=== PATIENT | male | born 1945 | race Caucasian/White ===

== ENCOUNTER 2018-09-08 14:39 | Inpatient (IN) | payer MEDICARE ==
[2018-09-08] MEDS ORDERED: traMADol TAB* 50 MG PO ONE (15:02)
--- NOTE | 2018-09-08 15:42 | RAD ---
INDICATION: Fall COMPARISON: None. TECHNIQUE: Contiguous axial sections of the brain were obtained from the skull base to the vertex without contrast. FINDINGS: The ventricles, cisterns and sulci exhibit a very mild degree of involutional change. The clay-white matter differentiation is adequately maintained and there is no sulcal effacement. No significant focal abnormality or mass effect is present. There is calcified atherosclerosis at the bilateral petrous carotid arteries and the bilateral vertebral arteries as they pass through the foramen magnum. There is no evidence for intracranial hemorrhage. No significant focal osseous abnormality is present. The visualized portion of the paranasal sinuses appear clear. The mastoid air cells are well aerated bilaterally. IMPRESSION: Age-appropriate chronic findings described in the body the report without CT evidence of traumatic intracranial injury.
--- NOTE | 2018-09-08 15:49 | RAD ---
INDICATION: Right rib pain after falling out of the latter COMPARISON: None TECHNIQUE: 3 views of the right hip were obtained. FINDINGS: The visualized bones of the right hip are well-corticated and properly aligned. The there is cortical discontinuity along the superior lateral margin of the right greater trochanter. There is a very faint lucent line seen along the intertrochanteric line. Remaining visualized bones are intact and appropriately aligned. IMPRESSION: There is either a nondisplaced intertrochanteric fracture or avulsion fracture of the greater trochanter.
--- NOTE | 2018-09-08 15:50 | RAD ---
INDICATION: Right wrist pain after a fall from a ladder COMPARISON: None. TECHNIQUE: 3 views right wrist. REPORT: There is a comminuted impacted fracture of the distal right radius. There is a small amount of dorsal angulation seen in the lateral view. Many visualized bones are intact and appropriately aligned. IMPRESSION: Comminuted, impacted fracture of the distal right radius.
--- NOTE | 2018-09-08 16:04 | ED ---
Progress - Progress Note Progress Note: I supervised the care of the physician distribution center assistant and I performed history and physical on the patient. History: Fell off a ladder injuring right wrist, right hip, nonambulatory. Physical exam: Deformity at the right wrist, neurovascular intact. Discomfort at the right greater trochanter. Pain with axial loading of the right hip. Abrasion to the right brow. Plan: X-ray of the right hip indicates possible nondisplaced intertrochanteric fracture. This will be further characterized by CT. Reduction and splinting of the wrist. I assisted with reduction and splinting of the right wrist. Course/Dx - Diagnoses Provider Diagnoses: Distal radius fracture, right, Trochanteric fracture of right femur Discharge - Sign-Out/Discharge Documenting (check all that apply): Patient Departure - Discharge Plan Condition: Stable Disposition: ADMITTED TO [facility] Referrals: Evin Arevalo MD [Primary Care Provider] - - Billing Disposition and Condition Condition: STABLE Disposition: Admitted to [facility] - Attestation Statements Document Initiated by Scribe: No
--- NOTE | 2018-09-08 16:12 | ED ---
Adult Trauma - HPI Summary HPI Summary: Patient is a 73-year-old male presenting to the ED after a fall from a 3-1/2 foot stepladder. He endorses pain to the right hip as well as the right wrist. Small abrasion to the right eyebrow, however denies any LOC or hitting his head otherwise. He states he did not attempt to walk immediately following the accident. Endorses a 2/10 pain without palpation and an 8/10 with palpation. He states he is otherwise healthy, however has hypertension at baseline. He is not on blood thinners. - History of Current Complaint Chief Complaint: EDTraumaMultiple Stated Complaint: FALL RIGHT HAND AND RIGHT HIP Time Seen by Provider: 09/08/18 14:45 Hx Obtained From: Patient Mechanism of Injury: Direct Blow Ambulatory at the Scene: No Loss of Consciousness: no loss of consciousness Onset/Duration: Started Minutes Ago Onset of Pain: Minutes Onset Severity: Moderate Current Severity: Moderate Pain Intensity: 8 Aggravating Factor(s): Nothing Alleviating Factor(s): Nothing Associated Signs & Symptoms: Positive: Negative Related History: Similar Episode - Allergy/Home Medications Allergies/Adverse Reactions: Allergies Allergy/AdvReac Type Severity Reaction Status Date / Time No Known Drug Allergies Allergy Unknown Verified 09/08/18 15:07 Reaction Details PMH/Surg Hx/FS Hx/Imm Hx Previously Healthy: Yes - Immunization History Hx Pertussis Vaccination: No Immunizations Up to Date: Yes Infectious Disease History: No Infectious Disease History: Denies: Traveled Outside the [place] in Last 30 Days - Social History Occupation: Unemployed, Retired Lives: With Family Alcohol Use: None Hx Substance Use: No Substance Use Type: Reports: None Hx Tobacco Use: No Smoking Status (MU): Never Smoked Tobacco Review of Systems Constitutional: Negative Negative: Fever, Chills, Fatigue, Skin Diaphoresis Negative: Palpitations, Chest Pain Negative: Shortness Of Breath, Cough Genitourinary: Negative Positive: no symptoms reported, see HPI Positive: Arthralgia, Myalgia Skin: Negative Neurological: Negative All Other Systems Reviewed And Are Negative: Yes Physical Exam Triage Information Reviewed: Yes Vital Signs On Initial Exam: Initial Vitals Temp Pulse Resp BP Pulse Ox 97.9 F 75 20 171/94 95 09/08/18 14:58 09/08/18 14:58 09/08/18 14:58 09/08/18 14:58 09/08/18 14:58 Vital Signs Reviewed: Yes Appearance: Positive: Well-Appearing, Well-Nourished Skin: Positive: Warm, Skin Color Reflects Adequate Perfusion Head/Face: Positive: Normal Head/Face Inspection Eyes: Positive: EOMI, MARIA TERESA, Conjunctiva Clear Neck: Positive: Supple, Nontender Respiratory/Lung Sounds: Positive: Breath Sounds Present Cardiovascular: Positive: Pulses are Symmetrical in both Upper and Lower Extremities Musculoskeletal: Positive: Pain @ - right lateral hip and R wrist Neurological: Positive: Speech Normal Psychiatric: Positive: Normal, Affect/Mood Appropriate Diagnostics - Vital Signs Vital Signs Temp Pulse Resp BP Pulse Ox 09/08/18 14:58 97.9 F 75 20 171/94 95 - Laboratory Result Diagrams: 09/08/18 20:45 09/08/18 20:45 Lab Statement: Any lab studies that have been ordered have been reviewed, and results considered in the medical decision making process. Adult Trauma Course/Dx - Course Course Of Treatment: During the course of treatment, the patient is evaluated for trauma. Injuries occurred after falling from a 3 and half foot ladder. He endorses pain to the right hip, right wrist. He denies pain otherwise. He denies hitting his head or having loss of consciousness. However there is a small abrasion just above the right eye. He denies any blood thinners. He has a history of hypertension and takes medications daily. X-ray of the wrist shows a comminuted, impacted fracture of the right distal radius. CT of the pelvis obtained which shows a minimally displaced avulsion fracture involving the superior and posterior right greater trochanter. Fracture line does not extend to or involve the lesser trochanter. Discussed case with Dr. Rosa at 5: 20 PM. Patient continues to not be able to ambulate. Discussed case with Dr. Rose, hospitalist who agrees to admit. Brain CT obtained which is normal. - Diagnoses Differential Diagnosis/HQI/PQRI: Positive: Fracture Provider Diagnoses: Distal radius fracture, right, Trochanteric fracture of right femur Discharge - Sign-Out/Discharge Documenting (check all that apply): Patient Departure - Discharge Plan Condition: Stable Disposition: ADMITTED TO [facility] - Billing Disposition and Condition Condition: STABLE Disposition: Admitted to [facility] Addendum entered and electronically signed by Demetria Gonzalez PA 09/08/18 17:40 : ED Addendum Addendum: Right wrist reduced and splinted s/p finger trap placement. s/p reduction xrays show adequate reduction.
--- NOTE | 2018-09-08 16:59 | RAD ---
CLINICAL HISTORY: Right hip pain after a fall from a ladder. COMPARISON: Same day hip radiograph TECHNIQUE: Axial CT images of the pelvis were obtained without intravenous contrast. Reformats in the sagittal and coronal planes were created and reviewed. FINDINGS: There is an avulsion fracture involving the superior and posterior portion of the right greater trochanter that extends inferiorly along the intertrochanteric line but does not reach the lesser trochanter. The remaining portions of the visualized right femur including the neck and proximal shaft are intact. The visualized portions of the right iliac bone are intact. Incidentally noted is mild calcified atherosclerosis of the right common femoral and superficial femoral arteries. IMPRESSION: Minimally displaced avulsion fracture involving the superior and posterior right greater trochanter. Fracture line does not extend to or involve the lesser trochanter.
--- NOTE | 2018-09-08 17:52 | RAD ---
INDICATION: Status post reduction of fractured distal right radius COMPARISON: Same day radiograph acquired at 1530 hours TECHNIQUE: 3 views right wrist at 1720 hours. REPORT: There is been interval placement of a splint that partially obscures the visualized bones of the AP and oblique views. Again seen is a comminuted fracture of the distal right radius. There is been a slight interval reduction in the degree of dorsal angulation at the fracture site. IMPRESSION: Slight interval reduction in the degree of dorsal angulation at the patient's comminuted distal right radius fracture.
[2018-09-08] MEDS ORDERED: Acetaminophen TAB* 325 MG PO PRN (20:05)
[2018-09-08 20:52] LABS: Hematocrit 42 % (42-52); Mean Corpuscular HGB Conc 33 g/dl (31-36); Mean Corpuscular Hemoglobin 30 pg (27-31); Mean Corpuscular Volume 90 fL (80-94); Mean Platelet Volume 9.7 fL (7.4-10.4); Platelet Count 166 10^3/ul (150-450); Red Blood Count 4.68 10^6/ul (4.00-5.40); Red Cell Distribution Width 15 % (10.5-15); White Blood Count 13.4 10^3/ul (3.5-10.8)
[2018-09-08 21:07] LABS: EGFR Non-African American 68.9 (>60)
[2018-09-08] MEDS: Heparin VIAL(*) 5000 UNITS/ML VIAL (FIVE THOUSAND) SUBCUT SCH (22:16)
--- NOTE | 2018-09-08 23:06 | HP ---
CC: Dr. Rosa; Dr. Arevalo * HISTORY AND PHYSICAL: DATE OF ADMISSION: 09/08/18 PROVIDER: Kim Stover NP PRIMARY CARE PROVIDER: Dr. Arevalo. ATTENDING PHYSICIAN WHILE IN THE HOSPITAL: Dr. Funmi Baird * (dictated by Kim Stover NP). CHIEF COMPLAINT: 1. Fall. 2. Right hip avulsion fracture. 3. Right wrist distal radius fracture. HISTORY OF PRESENT ILLNESS: Mr. Arenas is a 73-year-old male with a past medical history significant for hypertension, hyperlipidemia, and depression who presented to the emergency room after a fall at home. The patient reports that he was cleaning his ring gutters when he side stepped on a ladder that was 3.5 feet off the ground, lost his balance and fell landing on the ground. The patient reports that he had immediately had right hip pain and right wrist pain after the fall. He states that he did not try to get up or walk on his hip after the fall. Prior to the fall, he denies any dizziness. He denies any loss of consciousness. He does report that he hit the right side of his head, specifically right forehead. The patient denies fever or chills. Denies any nausea, vomiting, or diarrhea. Denies any chest pain or shortness of breath. Denies any recent cough or congestion. Denies any gross hematuria or dysuria. Denies any other symptoms. The patient denies any neck pain or back pain, status post a fall. Given his right wrist fracture and avulsion fracture to his right hip, we were asked to see and evaluate him for admission. PAST MEDICAL HISTORY: Significant for: 1. Hypertension. 2. Hyperlipidemia. 3. Depression. PAST SURGICAL HISTORY: None. HOME MEDICATIONS: Include: 1. Prozac unknown dose. 2. Norvasc unknown dose. 3. Simvastatin unknown dose. 4. Aspirin 81 mg p.o. daily. ALLERGIES TO MEDICATIONS: No known drug allergies. FAMILY HISTORY: No reported history of coronary artery disease or diabetes. Mother with a history of lung cancer. SOCIAL HISTORY: Denies any tobacco, alcohol, or illicit drug use. He is retired. He is and lives with his . Surrogate decision maker in the event he is unable to make his own decisions is his , Miko, her phone number is . He is a full code. REVIEW OF SYSTEMS: There was no documented fever. There has been no significant weight change. There was no double vision. There was no dizziness. Denies any ear discharge or rhinorrhea. No sore throat. He denies any chest pain. Denies any orthopnea or nocturnal dyspnea. There was no abdominal pain. No nausea, vomiting, or diarrhea. No dysuria or urinary frequencies. There are no seizures. No loss of consciousness. No pruritus. He does complain of abrasion above his right eye and right wrist and right hip pain. A review of 14 systems was completed and all others were negative. PHYSICAL EXAMINATION GENERAL: At this time, Mr. Arenas is a 73-year-old male who appears alert and oriented, sitting on the stretcher in the emergency room. He does not appear to be in acute distress. VITAL SIGNS: Blood pressure was 157/69, heart rate 72, respirations 16, O2 saturation 96%, and temperature on admission was 97.9. HEENT: He does have an abrasion, swelling, and ecchymosis to the right periorbital area. Eyes: EOMs are intact. Sclerae anicteric and not pale. Pupils are equal and reactive to light. Oral mucosa is moist. There is no oropharyngeal erythema. NECK: Supple. No C-spine tenderness to palpation. LUNGS: Clear to auscultation bilaterally. No wheezes, rales, or rhonchi. CARDIAC: S1, S2. Regular rate and rhythm. No murmurs, rubs, or gallops. ABDOMEN: Soft, nontender. Bowel sounds are present x4. EXTREMITIES: Pulses are +2 bilaterally. He is able to move all 4 extremities. He does have limited range of motion to his right leg and his right wrist is currently splinted. CMSTs are intact to his right wrist and foot. NEUROLOGIC: He is awake, alert, and oriented x3. Speech is clear. There are no gross focal deficits. SKIN: He does have a abrasion above his right eye with ecchymosis and swelling. DIAGNOSTIC STUDIES AND LABORATORY DATA: CBC and BMP are currently pending. Head CT was with no acute process. Right wrist showed a right distal radius fracture. Right hip and pelvis CT showed right avulsion fracture to the greater trochanter, not extending into the lesser trochanter. ASSESSMENT AND PLAN: Mr. Arenas is a 73-year-old male with the past medical history significant for hypertension, hyperlipidemia, and depression who presented to the emergency room after a fall at home while cleaning his ring gutters today. He will be admitted under observation for: 1. Right distal radial fracture. The patient did have this reduced in the emergency room and a splint was applied to his right forearm and wrist. CMSTs are intact. He will be seen in consultation by Orthopedics tomorrow. He can have Tylenol as needed for pain, ice to the wrist for comfort. 2. Right avulsion fracture to the hip. I have consulted Dr. Rosa who recommends weightbearing as tolerated. He will need PT for training with platform walker. Again, he can have Tylenol as needed for pain or tramadol as needed for severe pain. 3. Hypertension. He should continue his Norvasc as previously prescribed. When we get an updated med list, I will place the orders in the computer. 4. Hyperlipidemia. He should continue simvastatin. Again, med rec needs to be performed, so orders can be placed in the computer. 5. Depression. He should continue on his Prozac as previously prescribed. Again, I will place these orders in the computer when the med rec is updated. 6. Fluids, electrolytes, and nutrition. He can have a heart-healthy caffeine okay diet. 7. DVT prophylaxis. I will place him on heparin subcu every 8 hours. 8. Code status. He is a full code. TIME SPENT: Time spent on this admission was approximately 60 minutes, greater than half that time was spent [id number] with the patient obtaining my history and physical. The other half the time was spent going over my plan of care and implementing my plan of care. I have discussed this with my attending, Dr. Funmi Baird, she is in agreement with my plan. KIM STOVER, JORGE [id number]/[facility] #: [id number] ANDREW
[2018-09-09] MEDS: Heparin VIAL(*) 5000 UNITS/ML VIAL (FIVE THOUSAND) SUBCUT SCH ×3 (05:44→21:58)
[2018-09-09] MEDS: traMADol TAB* 50 MG PO PRN ×2 (05:49→13:50)
--- NOTE | 2018-09-09 14:27 | PN ---
Subjective Date of Service: 09/09/18 Interval History: Pt seen and examined. Meds and labs reviewed. CC: N/A ROS: Denied REAVES/dizziness, F/C, N/V, CP, SOB, increased cough, sputum production , abd pain, diarrhea, constipation, dysuria, myalgias, arthralgias, throat pain , and new skin lesions. The rest of the 14 point ROS are unremarkable. PHYSICAL EXAM: GEN APPEARANCE: Awake, not in acute distress HEENT: NC/AT, PERRLA, moist oral mucosa, (-) throat erythema NECK: Soft, supple, (-) cervical LAD, (-)JVD HEART: S1S2 WNL, RRR, No MRG CHEST: CTA, BL, GAE, No W/R/R ABD: Soft, ND/NT, NABS 4x Q EXT: No C/C/splint applied to right forearm and wrist SKIN: Warm to touch PSYCH: No active psychosis, hallucinations, depression, SI/HI Objective Active Medications: Acetaminophen (Tylenol Tab*) 650 mg PO Q4H PRN PRN Reason: FEVER/PAIN Amlodipine Besylate (Norvasc Tab*) 5 mg PO DAILY [facility] Heparin Sodium (Porcine) (Heparin Vial(*)) 5,000 units SUBCUT Q8HR YESSI Last Admin: 09/09/18 13:50 Dose: 5,000 units Tramadol HCl (Ultram*) 50 mg PO Q8H PRN PRN Reason: PAIN Last Admin: 09/09/18 13:50 Dose: 50 mg Vital Signs - 8 hr 09/09/18 09/09/18 09/09/18 07:33 07:47 08:42 Temperature 98.4 F Pulse Rate 62 Respiratory 16 18 18 Rate Blood Pressure 152/78 (mmHg) O2 Sat by Pulse 98 Oximetry 09/09/18 09/09/18 11:41 13:50 Temperature 98.4 F Pulse Rate 62 Respiratory 16 18 Rate Blood Pressure 138/68 (mmHg) O2 Sat by Pulse 97 Oximetry Oxygen Devices in Use Now: None Result Diagrams: 09/08/18 20:45 09/08/18 20:45 Assess/Plan/Problems-Billing Assessment: - Patient Problems (1) Right radial fracture Current Visit: Yes Status: Acute Code(s): S52.91XA - UNSP FRACTURE OF RIGHT FOREARM, INIT FOR CLOS FX SNOMED Code(s): 45372887 Comment: -S/P splint placement -Continue PRN and Tramadol for pain control -Appreciate Ortho input; spoke with Patito for pt to F/U w/Dr. Rosa on Sunday and that no surgical procedure is planned (2) Avulsion fracture of right hip Current Visit: Yes Status: Acute Code(s): S72.001A - FRACTURE OF UNSP PART OF NECK OF RIGHT FEMUR, INIT SNOMED Code(s): 443367174 Comment: -As above -Will defer (3) HTN (hypertension) Current Visit: Yes Status: Acute Code(s): I10 - ESSENTIAL (PRIMARY) HYPERTENSION SNOMED Code(s): 09124407 Comment: -Unknown Norvasc dose---will place pt on 5 mg and will continue watchful waiting (4) DVT prophylaxis Current Visit: Yes Status: Acute Code(s): UAZ0373 - SNOMED Code(s): 928520411 Comment: -Continue Heparin [id number] Status and Disposition: -Appreciate PT eval and per PT will work with pt one more day to see if he will be able to be safely D/Cd home and will need platform walker on D/C -Possible D/C in AM
--- NOTE | 2018-09-09 15:09 | CONS ---
CONSULTATION REPORT: DATE OF CONSULT: 09/09/18 ATTENDING ORTHOPEDIC PROVIDER: Dr. Dona oRsa. CHIEF COMPLAINT: Fall with avulsion fracture of the right hip and right wrist distal radius fracture. HISTORY OF PRESENT ILLNESS: Mr. Arenas is a 73-year-old male with a past medical history of hypertension, hyperlipidemia, and depression, who presented to the emergency room after a fall off the ladder at home. The patient states that he was cleaning the gutters and fixing shingles, as he came down the ladder he stepped off the ladder too soon. He states that he was roughly 3 steps up the ladder and stepped off falling on to his right side. She had immediate right hip and right wrist pain. He is unsure if he had any loss of consciousness. He states that he did hit the right side of his head on the ground and he felt very dazed, unsure what exactly happened after the fall. He was found by his who brought him into the emergency room. He states that he did have complete recollection of the fall once he had gone to the emergency room. Prior to falling, he had no chest pain, shortness of breath, or dizziness. On consultation today, he states that his right wrist remains painful , worse with movement and the right hip is not painful aside from palpation or any movement. He has no numbness or tingling of his extremities. PAST MEDICAL HISTORY: Significant for hypertension, hyperlipidemia, depression. PAST SURGICAL HISTORY: None. HOME MEDICATIONS: Include: 1. Prozac. 2. Norvasc. 3. Simvastatin. 4. 81 mg of aspirin daily. SOCIAL HISTORY: No tobacco, alcohol, or drug use. The patient is retired. He lives with his . He is a community ambulator. REVIEW OF SYSTEMS: General: No fever, chills, or recent illness. Head: The patient reports he did hit the right side of his head. He has no change in vision. He has a mild headache. Cardiac: No history of heart attack , no chest pain, no irregular beats. Respiratory: No history of COPD or asthma. No difficulty breathing at this time. Abdomen: No nausea, vomiting, or diarrhea. : No dysuria. Musculoskeletal: Positive for right wrist pain and right hip pain. No pain of his extremities, otherwise. Neurologic: Sensation is intact to all extremities. No paresthesias. Skin: Bruising and small abrasion over the right eye, but otherwise none reported. PHYSICAL EXAM: Vital Signs: Temperature 98.4, pulse rate 62, respiratory rate 16, oxygen saturation 98, blood pressure 152/78. General: The patient is well appearing, in no acute distress. He is sitting comfortably in his hospital bed. HEENT: He has some ecchymosis and abrasion over the right zygomatic bone. Extraocular movements are intact. Pupils are equally round and reactive to light. Oral mucosa is moist. Neck: No C-spine tenderness. Lungs: Clear to auscultation bilaterally without wheezes, rales, or rhonchi. Cardiac: S1 and S2, regular rate and rhythm without any audible murmurs. Abdomen: Normoactive bowel sounds. Soft, nontender. No guarding, no rigidity. Extremities: Left upper extremity skin envelope intact. Able to flex and extend at the digits, wrist, elbow without any pain. Able to forward flex and abduct the shoulder without any pain. There is no tenderness to palpation over the clavicle or throughout the left upper extremity. Right upper extremity: The patient has a sugar-tong splint in place. The skin envelope is intact. He is nontender over the clavicle or over the exposed portions of the right upper extremity. He is able to wiggle his fingers. He has flexion and extension of the MTPs, DIPs, PIPs. Sensation is intact throughout all 5 digits. Capillary refill is less than 2 seconds. Forward flexion and abduction of his shoulder is intact without any pain. Bilateral lower extremities: Skin envelope is intact. There is no obvious deformity. In the left lower extremity, the patient is nontender to palpation. Right lower extremity: He is tender over the greater trochanter. Bilaterally he is able to flex and extend at the MTPs, ankles, knees, and at the hips. Negative logroll on the left. Pain with log roll on the right. Neuro: Sensation is intact to light touch throughout bilateral upper and lower extremities. Vascular: Radial pulse on the left is 2+, DP pulse on the bilateral lower extremities 2+. Capillary refill less than 2 seconds distally in bilateral upper and lower extremities. DIAGNOSTIC STUDIES/LAB DATA: White blood cell count 13.4, hemoglobin 14.0, hematocrit 42, platelet count 166. Sodium 137, potassium 4.0. -Brain CT, impression: No evidence of traumatic intracranial injury. -Hip and pelvis x-ray, minimally displaced avulsion fracture involving superior and posterior right greater trochanter, fracture line does not extend to or involve the lesser trochanter -Wrist x-ray interpretation per Radiology, right wrist with a comminuted impacted fracture of the right distal radius. ASSESSMENT: 1. Right hip greater trochanteric avulsion fracture. 2. Right distal radius fracture. PLAN: The patient will be weightbearing as tolerated on the right lower extremity. On the right upper extremity, he will be nonweightbearing of the wrist. No pushing, pulling, or lifting with the right hand, but he is able to wiggle the fingers as tolerated. He should elevate his right upper extremity. He should ice both the right hip and the right wrist. He will participate with physical therapy. I recommend use of a platform walker. He can follow up with Dr. Rosa in 1 week in our clinic on 09/16/18. Please call our office at [phone] for an appointment. ROMAN CABALLERO [id number]/[facility] #: [id number] ANDREW
[2018-09-09] MEDS: amLODIPine TAB* 5 MG PO SCH (15:20)
[2018-09-10 03:48] LABS: Urine Appearance Clear; Urine Blood 1+ (Negative); Urine Color Straw; Urine Ketones Negative (Negative); Urine Protein Negative (Negative); Urine Red Blood Cell Trace(0-2/hpf) (Absent); Urine Specific Gravity 1.004 (1.010-1.030); Urine Urobilinogen Negative (Negative); Urine White Blood Cell Absent (Absent)
[2018-09-10] MEDS: Heparin VIAL(*) 5000 UNITS/ML VIAL (FIVE THOUSAND) SUBCUT SCH ×2 (05:24→15:59)
[2018-09-10] MEDS: traMADol TAB* 50 MG PO PRN ×2 (05:24→15:59)
[2018-09-10 05:29] LABS: ABS Basophils 0 10^3/ul (0-0.2); ABS Eosinophils 0.1 10^3/ul (0-0.6); ABS Lymphocytes 1.6 10^3/ul (1.0-4.8); ABS Monocytes 1.1 10^3/ul (0-0.8); ABS Neutrophils 5.3 10^3/ul (1.5-7.7); ABS Nucleated RBC 0 10^3/ul; Eosinophil % 1.1 % (0-6); Hematocrit 40 % (42-52); Hemoglobin 13.3 g/dl (14.0-18.0); Lymphocyte % 20.2 % (25-47); Mean Corpuscular HGB Conc 33 g/dl (31-36); Mean Corpuscular Hemoglobin 30 pg (27-31); Mean Corpuscular Volume 90 fL (80-94); Mean Platelet Volume 9.6 fL (7.4-10.4); Nucleated Red Blood Cells % 0.1; Platelet Count 150 10^3/ul (150-450); Red Blood Count 4.41 10^6/ul (4.00-5.40); Red Cell Distribution Width 15 % (10.5-15); White Blood Count 8.2 10^3/ul (3.5-10.8)
[2018-09-10 05:37] LABS: INR 0.94 (0.77-1.02)
[2018-09-10 05:48] LABS: EGFR Non-African American 79.1 (>60)
[2018-09-10] MEDS: amLODIPine TAB* 5 MG PO SCH (08:20)
--- NOTE | 2018-09-10 08:23 | PN ---
Progress Note - Progress Note Date of Service: 09/10/18 SOAP: Subjective: []Patient was seen and examined at bedside. He feels well with pain of his right wrist and right hip improved from yesterday. Denies CP, SOB, dizziness, nausea. Objective: [] General: Well appearing, NAD RUE: Exposed skin envelope intact, sugartong splint in place, decreased swelling of digits, able to flex and extend at MCP, PIP, DIPs. Sensation intact to light touch throughout all digits, capillary refill less than two seconds distally. RLE: Skin envelope intact, no obvious deformity, tender to palpation over greater trochanter, thigh is soft, able to flex and extend at the hip, knee and ankle, DP2+, sensation intact distally. Calves supple and nontender without erythema, edema or palpable cords Assessment: []Right distal radius fracture Right greater trochanter fracture Plan: []WBAT RLE NWB right wrist, do move fingers as splint allows, may use platform walker F/U Dr Rosa 09/16 in clinic Temp Pulse Resp BP Pulse Ox 98.0 F 52 16 133/68 95 09/10/18 07:16 09/10/18 07:16 09/10/18 07:45 09/10/18 07:16 09/10/18 07:16
[2018-09-10 16:28] VITALS: BP 127/65
--- NOTE | 2018-09-11 07:00 | DS ---
CC: Dr. Arevalo; Dr. Rosa.* DISCHARGE SUMMARY: DATE OF ADMISSION: 09/08/18 DATE OF DISCHARGE: 09/10/18 PRINCIPAL DISCHARGE DIAGNOSES: 1. Right distal radius fracture. 2. Right greater trochanteric avulsion fracture. SECONDARY DISCHARGE DIAGNOSES: 1. Hypertension. 2. Hyperlipidemia. 3. Depression. PHYSICAL EXAMINATION: At the time of discharge: Temperature 98.5, heart rate 54, respiratory rate 16, pulse ox 95% on room air, blood pressure 134/64. General: Alert, well-appearing man, in no distress. HEENT: Ecchymosis present over the right maxilla. Oral mucosa is moist. Neck: No JVP. No cervical adenopathy. Chest: Regular rate and rhythm. Lungs: Clear to auscultation. Abdomen: Soft, nontender, nondistended. Extremities: The right upper extremity is in a soft splint and Toño wrap. He is able to move his all fingers and has no numbness or tingling. He has ecchymosis over his finger. The right greater trochanter is tender to light palpation. His distal sensation is grossly intact. His pulses are 2+ throughout and sensation is intact. IMAGING: A pelvis CT on 09/08/18 shows minimally with displaced avulsion fracture involving the superior and posterior right greater trochanter. Fracture line does not extent to or involved the lesser trochanter. Wrist x- ray showed comminuted impacted fracture of the right distal radius. HOSPITAL COURSE BY PROBLEM: 1. Right distal radius fracture. He was evaluated by Orthopedic Surgery on 03/22. They recommended nonweightbearing on both of right upper extremity and the right lower extremity. The wrist was wrapped and splinted and nonoperative management is recommended. He is to follow up with Dr. Rosa on Sunday. 2. Right greater trochanteric avulsion fracture. He was nonweightbearing on the right hip and a platform walker was recommended. Orthopedic surgery recommended. Conservative management. He participated with physical therapy on 09/09/18 and 09/10/18. On on 09/09/18, he could barely walk to the doorway and on 09/10/18, he was able to walk into the hallway with minimal pain. He will follow up with Dr. Rosa on 09/16/18. He lives with his who will be with him round the clock at home. A platform walker was ordered and picked up by his . 3. Hypertension, he was continued on his home dose of amlodipine. 4. Hyperlipidemia, he was continued on his home dose of simvastatin. 5. History of depression, he was continued on his home dose of fluoxetine. FOLLOWUP NEEDED: Mr. Arenas will follow up with Dr. Rosa on the 09/16/18 and has been arranged for [facility] for home physical therapy by case management. He lives with his , who is able to assist him with ambulation. He missed an appointment with Dr. Arevalo during this admission. I instructed him to follow up with Dr. Arevalo within 1 week. DISCHARGE MEDICATIONS: He has taken 1 dose of tramadol today on the day of discharge, so I am sending a short course of tramadol to his pharmacy. [id number]/[facility] #: [id number] MTDD
== END 2018-09-10 16:40 | disposition home or self-care (01) | DRG 536 ==
LOC: ED 14:39 → SSU 20:05 → OBSVTOIN 09-09 16:16
PROVIDERS: ADMIT Internal Medicine; ATTEND Internal Medicine
DX: S72.111A Displaced fracture of greater trochanter of right femur, initial encounter for closed fracture (principal); S52.501A Unspecified fracture of the lower end of right radius, initial encounter for closed fracture; W11.XXXA Fall on and from ladder, initial encounter; I10 Essential (primary) hypertension; E78.5 Hyperlipidemia, unspecified; F32.9 Major depressive disorder, single episode, unspecified; Y92.096 Garden or yard of other non-institutional residence as the place of occurrence of the external cause; Z79.82 Long term (current) use of aspirin; Z79.899 Other long term (current) drug therapy; Z80.1 Family history of malignant neoplasm of trachea, bronchus and lung
CPT/HCPCS: 36415; 70450; 72192; 80048; 81003; 81015; 83735; 84100; 85025; 85027; 85610; 85730; 99282; A9270-GY; G8978-GP-CK; G8979-GP-CI; G8987-GO-CK; G8988-GO-CK; G8989-GO-CK; J1644

== ENCOUNTER 2022-04-06 12:13 | Inpatient (IN) ==
[2022-04-06 14:02] LABS: ABS Lymphocytes 0.7 10^3/ul (1.0-4.8); ABS Neutrophils 8.4 10^3/ul (1.5-7.7); Eosinophil % 0.4 %; Hematocrit 36 % (42-52); Hemoglobin 11.9 g/dL (14.0-18.0); Lymphocyte % 7.2 %; Mean Corpuscular HGB Conc 33 g/dL (31-36); Mean Corpuscular Hemoglobin 29 pg (27-31); Mean Corpuscular Volume 87 fL (80-94); Mean Platelet Volume 8.4 fL (7.4-10.4); Platelet Count 247 10^3/uL (150-450); Red Blood Count 4.17 10^6 /uL (4.18-5.48); Red Cell Distribution Width 15 % (10-15); White Blood Count 10.3 10^3/uL (3.5-10.8)
[2022-04-06 14:24] LABS: Urine Appearance Cloudy; Urine Bilirubin Negative (Negative); Urine Blood Negative (Negative); Urine Color Yellow; Urine Glucose Negative (Negative); Urine Ketones Negative (Negative); Urine Nitrite Negative (Negative); Urine Protein Negative (Negative); Urine Specific Gravity 1.013 (1.002-1.030); Urine Urobilinogen Negative (Negative)
[2022-04-06 15:07] LABS: Myoglobin 30.8 ng/mL (17.4-105.7)
[2022-04-06 15:17] LABS: TSH Ultra Thyroid Stim Horm 1.8 mcIU/mL (0.34-5.60)
[2022-04-06 15:21] LABS: High Sensitivity Troponin 1 Hr 149 pg/mL (<20)
[2022-04-06 15:33] LABS: Albumin 3.6 g/dL (3.2-5.2); Albumin/Globulin Ratio 1.7 (1-3); Globulin 2.1 g/dL (2-4); Potassium 4.2 mmol/L (3.5-5.0); Total Bilirubin 0.5 mg/dL (0.2-1.0); Total Protein 5.7 g/dL (6.4-8.9); eGFR CKD-EPI 76.6 (>60)
[2022-04-06] MEDS ORDERED: Iohexol 350 (CONTRAST) 500 ML MDV IV ONE (16:56)
[2022-04-06] MEDS ORDERED: Lactated Ringers 1000 ml BAG 1,000 ML IV ONE (18:34)
[2022-04-06] MEDS ORDERED: Metoprolol Tartrate 5 mg VIAL 5 ml VIAL (1 mg/ml) IV PRN (20:21)
[2022-04-06 20:59] LABS: Calcium (PTH Intact) 10.9 mg/dL (8.6-10.3)
[2022-04-06] MEDS ORDERED: Enoxaparin 40 MG/0.4 ML SYR SUBCUT SCH (21:00)
[2022-04-06] MEDS ORDERED: Acetaminophen IV 1 GM/100ML 100 ML IV PRN (21:30)
[2022-04-06] MEDS: Enoxaparin 80 MG/0.8 ML SYR SUBCUT SCH (22:40)
[2022-04-07] MEDS ORDERED: Dexamethasone IV 4 MG/ML VIAL 1 ml VIAL IV SLOW PU ONE (00:05)
[2022-04-07 05:36] LABS: ABS Lymphocytes 0.6 10^3/ul (1.0-4.8); ABS Monocytes 0.4 10^3/ul (0-0.8); ABS Neutrophils 10.8 10^3/ul (1.5-7.7); Eosinophil % 0.1 %; Hematocrit 42 % (42-52); Hemoglobin 13.5 g/dL (14.0-18.0); Lymphocyte % 4.7 %; Mean Corpuscular HGB Conc 32 g/dL (31-36); Mean Corpuscular Hemoglobin 28 pg (27-31); Mean Corpuscular Volume 87 fL (80-94); Platelet Count 264 10^3/uL (150-450); Red Blood Count 4.79 10^6 /uL (4.18-5.48); Red Cell Distribution Width 15 % (10-15); White Blood Count 11.8 10^3/uL (3.5-10.8)
[2022-04-07 06:00] LABS: Albumin 3.5 g/dL (3.2-5.2); Albumin/Globulin Ratio 1.6 (1-3); Globulin 2.2 g/dL (2-4); Potassium 4.2 mmol/L (3.5-5.0); Total Bilirubin 0.6 mg/dL (0.2-1.0); Total Protein 5.7 g/dL (6.4-8.9); eGFR CKD-EPI 72.4 (>60)
[2022-04-07] MEDS: Enoxaparin 80 MG/0.8 ML SYR SUBCUT SCH ×2 (09:49→21:55)
[2022-04-07] MEDS ORDERED: Gadoteridol (CONTRAST) 279.3 MG/ML 10 ML IV ONE (15:06)
[2022-04-07] MEDS: Polyethylene Glycol 3350 17 GM PACKET PO SCH (22:00)
[2022-04-08 06:09] LABS: ABS Eosinophils 0.1 10^3/ul (0-0.6); ABS Lymphocytes 1.2 10^3/ul (1.0-4.8); ABS Monocytes 1.4 10^3/ul (0-0.8); ABS Neutrophils 12.5 10^3/ul (1.5-7.7); Eosinophil % 0.5 %; Hematocrit 39 % (42-52); Hemoglobin 12.7 g/dL (14.0-18.0); Mean Corpuscular HGB Conc 33 g/dL (31-36); Mean Corpuscular Hemoglobin 28 pg (27-31); Mean Corpuscular Volume 86 fL (80-94); Platelet Count 270 10^3/uL (150-450); Red Blood Count 4.51 10^6 /uL (4.18-5.48); Red Cell Distribution Width 15 % (10-15); White Blood Count 15.2 10^3/uL (3.5-10.8)
[2022-04-08 06:38] LABS: Calcium 10.4 mg/dL (8.6-10.3); Potassium 3.9 mmol/L (3.5-5.0); eGFR CKD-EPI 82.4 (>60)
[2022-04-08] MEDS: Enoxaparin 80 MG/0.8 ML SYR SUBCUT SCH ×2 (08:03→21:31)
[2022-04-08] MEDS: Polyethylene Glycol 3350 17 GM PACKET PO SCH ×2 (08:03→21:32)
[2022-04-08] MEDS ORDERED: Senna TAB 8.6 mg TAB PO PRN (14:37)
[2022-04-08] MEDS ORDERED: Polyethylene Glycol 3350 17 GM PACKET PO PRN (14:37)
[2022-04-08 19:09] LABS: Urine Appearance Clear; Urine Bilirubin Negative (Negative); Urine Blood 2+ (Negative); Urine Color Straw; Urine Glucose Negative (Negative); Urine Ketones Negative (Negative); Urine Nitrite Negative (Negative); Urine Protein Negative (Negative); Urine Specific Gravity 1.006 (1.002-1.030); Urine Urobilinogen Negative (Negative)
[2022-04-08 19:23] LABS: Urine Bacteria Absent (Absent); Urine Red Blood Cell Trace(0-2/hpf) (Absent); Urine Squamous Epithelial Cell Present (Absent); Urine White Blood Cell Trace(0-5/hpf) (Absent)
[2022-04-08 19:50] LABS: Anaplasma phagocytophilum Negative (Negative); B. miyamotoi PCR, B Negative (Negative); Babesia divergens/MO-1 Negative (Negative); Babesia ducani Negative (Negative); Ehrlichia chaffeensis Negative (Negative); Ehrlichia ewingii/canis Negative (Negative); Ehrlichia muris eauclairensis Negative (Negative)
[2022-04-08] MEDS: Magnesium Hydroxide LIQ 30 ML UDC PO SCH (21:31)
[2022-04-09 06:26] LABS: ABS Lymphocytes 0.9 10^3/ul (1.0-4.8); ABS Monocytes 1.1 10^3/ul (0-0.8); ABS Neutrophils 9.3 10^3/ul (1.5-7.7); Eosinophil % 0.1 %; Hematocrit 36 % (42-52); Hemoglobin 11.9 g/dL (14.0-18.0); Lymphocyte % 7.9 %; Mean Corpuscular HGB Conc 33 g/dL (31-36); Mean Corpuscular Hemoglobin 28 pg (27-31); Mean Corpuscular Volume 86 fL (80-94); Mean Platelet Volume 9.3 fL (7.4-10.4); Platelet Count 249 10^3/uL (150-450); Red Blood Count 4.22 10^6 /uL (4.18-5.48); Red Cell Distribution Width 15 % (10-15); White Blood Count 11.3 10^3/uL (3.5-10.8)
[2022-04-09 06:50] LABS: Calcium 9.8 mg/dL (8.6-10.3); Magnesium 2.3 mg/dL (1.9-2.7); Potassium 4.3 mmol/L (3.5-5.0); eGFR CKD-EPI 77.6 (>60)
[2022-04-09] MEDS: Enoxaparin 80 MG/0.8 ML SYR SUBCUT SCH (09:19)
[2022-04-09] MEDS: Magnesium Hydroxide LIQ 30 ML UDC PO SCH ×2 (09:19→21:21)
[2022-04-09] MEDS: Polyethylene Glycol 3350 17 GM PACKET PO SCH ×3 (09:19→21:20)
[2022-04-10] MEDS ORDERED: Buffered Lidocaine 1% SYRIN 1 ml INTRADERM ONE (09:07)
[2022-04-10] MEDS: Polyethylene Glycol 3350 17 GM PACKET PO SCH ×2 (09:32→21:03)
[2022-04-10] MEDS ORDERED: Lactated Ringers 1000 ml BAG 1,000 ML IV SCH (10:00)
[2022-04-10] MEDS ORDERED: oxyCODONE/Acetamin 5/325 mg TAB PO PRN (12:45)
[2022-04-10] MEDS ORDERED: fentaNYL 100 mcg/2 ml 50 MCG/ML VIAL IV PRN (12:45)
[2022-04-10] MEDS ORDERED: Ondansetron 4 mg VIAL 2 MG/ML 2 ml VIAL IV PRN (12:45)
[2022-04-10] MEDS ORDERED: Naloxone 0.4 mg VIAL 0.4 mg/ml 1 ml VIAL IV PRN (12:45)
[2022-04-10] MEDS ORDERED: Lidocaine 1% 50 ML MDV VIAL ONE (14:38)
[2022-04-10] MEDS ORDERED: Lidocaine 2% PF 10 ML AMP ONE ×2 (14:39→14:40)
[2022-04-10] MEDS ORDERED: Lidocaine 2% JELLY 20 ML (for OR use) ONE (14:39)
[2022-04-10] MEDS ORDERED: Propofol 10 MG/ML 20 ML BTL ONE (14:43)
[2022-04-10] MEDS ORDERED: fentaNYL 100 mcg/2 ml 50 MCG/ML VIAL ONE ×2 (14:43→16:03)
[2022-04-10] MEDS ORDERED: Midazolam 2 mg/2 ml VIAL 1 mg/ml 2 ml VIAL (2 mg) ONE (14:43)
[2022-04-10] MEDS ORDERED: Rocuronium 50 mg VIAL 10 mg/ml 5 ml VIAL (50 mg) ONE (14:44)
[2022-04-10 14:51] LABS: Ferritin 601.3 ng/mL (24-336)
[2022-04-10] MEDS ORDERED: Dexamethasone IV 4 MG/ML VIAL 1 ml VIAL ONE (15:27)
[2022-04-10] MEDS ORDERED: Ondansetron 4 mg VIAL 2 MG/ML 2 ml VIAL ONE (15:27)
[2022-04-10] MEDS ORDERED: Albuterol/Ipratropium NEB.SOL (2.5/0.5 MG) 3 ML NEB.SOLN INH ONE ×2 (16:48→17:15)
[2022-04-10] MEDS ORDERED: Albuterol/Ipratropium NEB.SOL (2.5/0.5 MG) 3 ML NEB.SOLN ONE (16:49)
[2022-04-10 18:04] LABS: Body Fluid Appearance Cloudy; Body Fluid Color Colorless
[2022-04-10 23:39] LABS: Body Fluid Source Broncheoalveolar lav; Body Fluid Total Cells Counted 300
[2022-04-10 23:40] LABS: Body Fluid Other Cells 35
[2022-04-11 06:25] LABS: Hematocrit 38 % (42-52); Hemoglobin 12.6 g/dL (14.0-18.0); Mean Corpuscular HGB Conc 33 g/dL (31-36); Mean Corpuscular Hemoglobin 29 pg (27-31); Mean Corpuscular Volume 87 fL (80-94); Mean Platelet Volume 8.8 fL (7.4-10.4); Platelet Count 239 10^3/uL (150-450); Red Blood Count 4.38 10^6 /uL (4.18-5.48); Red Cell Distribution Width 15 % (10-15); White Blood Count 11.6 10^3/uL (3.5-10.8)
[2022-04-11 06:42] LABS: Calcium 9.6 mg/dL (8.6-10.3); Magnesium 2.2 mg/dL (1.9-2.7); Potassium 4.2 mmol/L (3.5-5.0); eGFR CKD-EPI 79.4 (>60)
[2022-04-11 06:45] LABS: ABS Lymphocytes 0.8 10^3/ul (1.0-4.8); ABS Monocytes 1.1 10^3/ul (0-0.8); ABS Neutrophils 9.6 10^3/ul (1.5-7.7); Eosinophil % 0.1 %; Lymphocyte % 7.1 %
[2022-04-11] MEDS: Polyethylene Glycol 3350 17 GM PACKET PO SCH ×2 (08:01→21:52)
[2022-04-11] MEDS ORDERED: Enoxaparin 80 MG/0.8 ML SYR SUBCUT SCH (13:00)
[2022-04-11] MEDS ORDERED: Albuterol HFA INHALER 8 gm MDI INH PRN (20:30)
[2022-04-12 05:26] LABS: Hematocrit 39 % (42-52); Hemoglobin 12.8 g/dL (14.0-18.0); Mean Corpuscular HGB Conc 33 g/dL (31-36); Mean Corpuscular Hemoglobin 28 pg (27-31); Mean Corpuscular Volume 86 fL (80-94); Mean Platelet Volume 8.8 fL (7.4-10.4); Platelet Count 243 10^3/uL (150-450); Red Blood Count 4.54 10^6 /uL (4.18-5.48); Red Cell Distribution Width 15 % (10-15); White Blood Count 14.6 10^3/uL (3.5-10.8)
[2022-04-12 05:35] LABS: ABS Monocytes 1.3 10^3/ul (0-0.8); ABS Neutrophils 12.2 10^3/ul (1.5-7.7); Eosinophil % 0.1 %; Nucleated Red Blood Cells % 0.1
[2022-04-12] MEDS: Polyethylene Glycol 3350 17 GM PACKET PO SCH ×2 (08:51→20:39)
[2022-04-12] MEDS: Senna TAB 8.6 mg TAB PO SCH (20:38)
[2022-04-12] MEDS: Calcium Carb (TUMS) 500 mg CHEW TAB PO PRN (22:20)
[2022-04-13] MEDS: Senna TAB 8.6 mg TAB PO SCH ×2 (08:06→22:05)
[2022-04-13] MEDS: Polyethylene Glycol 3350 17 GM PACKET PO SCH ×2 (08:07→22:06)
[2022-04-13] MEDS: Magnesium Hydroxide LIQ 30 ML UDC PO PRN (12:12)
[2022-04-13] MEDS: Ondansetron 4 mg VIAL 2 MG/ML 2 ml VIAL IV PRN (15:41)
[2022-04-14 06:16] LABS: Hematocrit 37 % (42-52); Hemoglobin 12.4 g/dL (14.0-18.0); Mean Corpuscular HGB Conc 33 g/dL (31-36); Mean Corpuscular Hemoglobin 29 pg (27-31); Mean Corpuscular Volume 87 fL (80-94); Mean Platelet Volume 8.8 fL (7.4-10.4); Platelet Count 241 10^3/uL (150-450); Red Blood Count 4.31 10^6 /uL (4.18-5.48); Red Cell Distribution Width 15 % (10-15); White Blood Count 14.6 10^3/uL (3.5-10.8)
[2022-04-14 08:51] LABS: ABS Lymphocytes 1.3 10^3/ul (1.0-4.8); ABS Monocytes 1.2 10^3/ul (0-0.8); ABS Neutrophils 12.1 10^3/ul (1.5-7.7); Eosinophil % 0.3 %; Lymphocyte % 8.6 %
[2022-04-14 08:54] LABS: RBC Morphology Normal (Normal)
[2022-04-14] MEDS: Ondansetron 4 mg VIAL 2 MG/ML 2 ml VIAL IV PRN (09:32)
[2022-04-14] MEDS: Polyethylene Glycol 3350 17 GM PACKET PO SCH ×2 (11:00→22:06)
[2022-04-14] MEDS: Senna TAB 8.6 mg TAB PO SCH ×2 (11:01→22:05)
[2022-04-14] MEDS: Magnesium Hydroxide LIQ 30 ML UDC PO PRN (11:02)
[2022-04-14] MEDS ORDERED: Ondansetron 4 mg VIAL 2 MG/ML 2 ml VIAL IV ONE (13:42)
[2022-04-15 06:15] LABS: Hematocrit 38 % (42-52); Hemoglobin 12.4 g/dL (14.0-18.0); Mean Corpuscular HGB Conc 33 g/dL (31-36); Mean Corpuscular Hemoglobin 28 pg (27-31); Mean Corpuscular Volume 86 fL (80-94); Mean Platelet Volume 9.1 fL (7.4-10.4); Platelet Count 246 10^3/uL (150-450); Red Blood Count 4.42 10^6 /uL (4.18-5.48); Red Cell Distribution Width 15 % (10-15); White Blood Count 13.6 10^3/uL (3.5-10.8)
[2022-04-15 06:33] LABS: Calcium 9.7 mg/dL (8.6-10.3); Magnesium 2.2 mg/dL (1.9-2.7); Potassium 4.1 mmol/L (3.5-5.0); eGFR CKD-EPI 83.5 (>60)
[2022-04-15 06:46] LABS: ABS Lymphocytes 0.9 10^3/ul (1.0-4.8); ABS Monocytes 1.3 10^3/ul (0-0.8); ABS Neutrophils 11.4 10^3/ul (1.5-7.7); Eosinophil % 0.2 %; Lymphocyte % 6.4 %
[2022-04-15] MEDS: Senna TAB 8.6 mg TAB PO SCH (08:24)
[2022-04-15] MEDS: Polyethylene Glycol 3350 17 GM PACKET PO SCH (08:24)
[2022-04-16] MEDS: Senna TAB 8.6 mg TAB PO SCH ×3 (00:39→21:44)
[2022-04-16] MEDS: Polyethylene Glycol 3350 17 GM PACKET PO SCH ×3 (00:39→21:03)
[2022-04-16 06:14] LABS: Hematocrit 41 % (42-52); Hemoglobin 13.5 g/dL (14.0-18.0); Mean Corpuscular HGB Conc 33 g/dL (31-36); Mean Corpuscular Hemoglobin 28 pg (27-31); Mean Corpuscular Volume 86 fL (80-94); Platelet Count 252 10^3/uL (150-450); Red Blood Count 4.75 10^6 /uL (4.18-5.48); Red Cell Distribution Width 15 % (10-15); White Blood Count 13.9 10^3/uL (3.5-10.8)
[2022-04-16 06:32] LABS: ABS Monocytes 1.1 10^3/ul (0-0.8); ABS Neutrophils 11.8 10^3/ul (1.5-7.7); Eosinophil % 0.1 %; Lymphocyte % 6.9 %
[2022-04-16 06:34] LABS: Magnesium 2.3 mg/dL (1.9-2.7); Potassium 3.9 mmol/L (3.5-5.0); eGFR CKD-EPI 74.9 (>60)
[2022-04-16] MEDS ORDERED: HYDROmorphone 1 MG/1 ML SYRINGE IV ONE (10:32)
[2022-04-16] MEDS: Ondansetron 4 mg VIAL 2 MG/ML 2 ml VIAL IV PRN (10:59)
[2022-04-16] MEDS: Ondansetron 4 mg VIAL 2 MG/ML 2 ml VIAL IV SCH ×2 (11:00→19:28)
[2022-04-17] MEDS: Ondansetron 4 mg VIAL 2 MG/ML 2 ml VIAL IV SCH ×5 (00:06→22:42)
[2022-04-17] MEDS: Polyethylene Glycol 3350 17 GM PACKET PO SCH ×2 (10:19→21:46)
[2022-04-17] MEDS: Senna TAB 8.6 mg TAB PO SCH ×2 (12:07→21:48)
[2022-04-18] MEDS: Ondansetron 4 mg VIAL 2 MG/ML 2 ml VIAL IV SCH ×4 (04:57→23:21)
[2022-04-18 05:25] LABS: Hematocrit 38 % (42-52); Hemoglobin 12.4 g/dL (14.0-18.0); Mean Corpuscular HGB Conc 32 g/dL (31-36); Mean Corpuscular Hemoglobin 28 pg (27-31); Mean Corpuscular Volume 87 fL (80-94); Platelet Count 241 10^3/uL (150-450); Red Blood Count 4.41 10^6 /uL (4.18-5.48); Red Cell Distribution Width 15 % (10-15); White Blood Count 13.9 10^3/uL (3.5-10.8)
[2022-04-18 05:51] LABS: Calcium 10.2 mg/dL (8.6-10.3); Potassium 4.7 mmol/L (3.5-5.0); eGFR CKD-EPI 61.8 (>60)
[2022-04-18] MEDS ORDERED: NS 0.9% 1000 ml BAG 1,000 ML IV SCH (07:00)
[2022-04-18 07:29] LABS: ABS Lymphocytes 0.8 10^3/ul (1.0-4.8); ABS Neutrophils 12.1 10^3/ul (1.5-7.7); Eosinophil % 0.1 %; Lymphocyte % 5.7 %; Nucleated Red Blood Cells % 0.1
[2022-04-18] MEDS: Polyethylene Glycol 3350 17 GM PACKET PO SCH ×2 (10:22→21:20)
[2022-04-18] MEDS: Senna TAB 8.6 mg TAB PO SCH ×2 (10:40→21:24)
[2022-04-18] MEDS: Morphine ER 15 mg TAB ** extended release PO SCH ×2 (13:41→23:21)
[2022-04-18] MEDS ORDERED: Gadoteridol (CONTRAST) 279.3 MG/ML 10 ML IV ONE (15:54)
[2022-04-19] MEDS: Ondansetron 4 mg VIAL 2 MG/ML 2 ml VIAL IV SCH ×2 (05:08→11:40)
[2022-04-19 06:54] LABS: ABS Lymphocytes 0.6 10^3/ul (1.0-4.8); ABS Monocytes 0.9 10^3/ul (0-0.8); ABS Neutrophils 14.9 10^3/ul (1.5-7.7); Eosinophil % 0.1 %; Hematocrit 38 % (42-52); Hemoglobin 12.3 g/dL (14.0-18.0); Lymphocyte % 3.4 %; Mean Corpuscular HGB Conc 33 g/dL (31-36); Mean Corpuscular Hemoglobin 29 pg (27-31); Mean Corpuscular Volume 87 fL (80-94); Mean Platelet Volume 9.2 fL (7.4-10.4); Platelet Count 245 10^3/uL (150-450); Red Blood Count 4.33 10^6 /uL (4.18-5.48); Red Cell Distribution Width 16 % (10-15); White Blood Count 16.4 10^3/uL (3.5-10.8)
[2022-04-19 07:07] LABS: Calcium 9.5 mg/dL (8.6-10.3); Potassium 4.8 mmol/L (3.5-5.0); eGFR CKD-EPI 73.2 (>60)
[2022-04-19] MEDS: Polyethylene Glycol 3350 17 GM PACKET PO SCH ×2 (09:43→20:49)
[2022-04-19] MEDS: Senna TAB 8.6 mg TAB PO SCH ×2 (09:43→20:46)
[2022-04-19] MEDS: Morphine ER 15 mg TAB ** extended release PO SCH ×2 (11:40→23:45)
[2022-04-19] MEDS ORDERED: Ondansetron ODT 4 mg TAB 4 MG TAB SL PRN (12:15)
[2022-04-19] MEDS: Calcium Carb (TUMS) 500 mg CHEW TAB PO PRN (20:55)
[2022-04-20] MEDS: Polyethylene Glycol 3350 17 GM PACKET PO SCH ×2 (09:46→21:09)
[2022-04-20] MEDS: Senna TAB 8.6 mg TAB PO SCH ×2 (09:47→21:09)
[2022-04-20] MEDS: Morphine ER 15 mg TAB ** extended release PO SCH ×2 (12:12→23:42)
[2022-04-20 20:16] LABS: High Sensitivity Troponin 1 Hr 56 pg/mL (<20)
[2022-04-21 06:17] LABS: Hematocrit 38 % (42-52); Hemoglobin 12.4 g/dL (14.0-18.0); Mean Corpuscular HGB Conc 33 g/dL (31-36); Mean Corpuscular Hemoglobin 29 pg (27-31); Mean Corpuscular Volume 87 fL (80-94); Platelet Count 237 10^3/uL (150-450); Red Blood Count 4.34 10^6 /uL (4.18-5.48); Red Cell Distribution Width 16 % (10-15); White Blood Count 18.7 10^3/uL (3.5-10.8)
[2022-04-21 06:51] LABS: Potassium 4.8 mmol/L (3.5-5.0); eGFR CKD-EPI 87.9 (>60)
[2022-04-21] MEDS: Magnesium Hydroxide LIQ 30 ML UDC PO PRN (09:45)
[2022-04-21] MEDS: Polyethylene Glycol 3350 17 GM PACKET PO SCH ×2 (09:45→20:26)
[2022-04-21] MEDS: Senna TAB 8.6 mg TAB PO SCH ×2 (09:50→20:27)
[2022-04-21 09:51] LABS: ABS Lymphocytes 0.7 10^3/ul (1.0-4.8); Eosinophil % 0.1 %; Lymphocyte % 3.6 %; Nucleated Red Blood Cells % 0.1
[2022-04-21 09:57] LABS: RBC Morphology Normal (Normal)
[2022-04-21] MEDS: Morphine ER 15 mg TAB ** extended release PO SCH ×2 (11:26→23:29)
[2022-04-22 06:46] LABS: Hematocrit 39 % (42-52); Hemoglobin 12.2 g/dL (14.0-18.0); Mean Corpuscular HGB Conc 32 g/dL (31-36); Mean Corpuscular Hemoglobin 28 pg (27-31); Mean Corpuscular Volume 89 fL (80-94); Mean Platelet Volume 9.3 fL (7.4-10.4); Platelet Count 206 10^3/uL (150-450); Red Blood Count 4.34 10^6 /uL (4.18-5.48); Red Cell Distribution Width 16 % (10-15); White Blood Count 15.7 10^3/uL (3.5-10.8)
[2022-04-22 07:01] LABS: ABS Lymphocytes 0.5 10^3/ul (1.0-4.8); ABS Monocytes 0.9 10^3/ul (0-0.8); ABS Neutrophils 14.3 10^3/ul (1.5-7.7); Eosinophil % 0.1 %; Lymphocyte % 3.2 %
[2022-04-22 07:17] LABS: Calcium 9.7 mg/dL (8.6-10.3); eGFR CKD-EPI 81.4 (>60)
[2022-04-22 07:19] LABS: Potassium 5.1 mmol/L (3.5-5.0)
[2022-04-22] MEDS: Polyethylene Glycol 3350 17 GM PACKET PO SCH ×2 (07:53→20:39)
[2022-04-22] MEDS: Senna TAB 8.6 mg TAB PO SCH ×2 (07:54→20:37)
[2022-04-22] MEDS ORDERED: NS 0.9% 1000 ml BAG 1,000 ML IV ONE ×2 (10:24→10:26)
[2022-04-22] MEDS: Lidocaine 2% JELLY 6 ML Topical TOPICAL ONE ×2 (10:30→12:46)
[2022-04-22 11:20] LABS: Urine Appearance Turbid; Urine Bacteria Absent (Absent); Urine Bilirubin Negative (Negative); Urine Blood 3+ (Negative); Urine Glucose Negative (Negative); Urine Ketones Negative (Negative); Urine Nitrite Negative (Negative); Urine Protein Negative (Negative); Urine Red Blood Cell 3+(>10/hpf) (Absent); Urine Specific Gravity 1.013 (1.002-1.030); Urine Urobilinogen Negative (Negative); Urine White Blood Cell 3+(>20/hpf) (Absent)
[2022-04-22 11:21] LABS: Urine Color Amber
[2022-04-22] MEDS: Morphine ER 15 mg TAB ** extended release PO SCH ×2 (11:32→23:28)
[2022-04-23 06:56] LABS: Hematocrit 39 % (42-52); Hemoglobin 12.6 g/dL (14.0-18.0); Mean Corpuscular HGB Conc 33 g/dL (31-36); Mean Corpuscular Hemoglobin 28 pg (27-31); Mean Corpuscular Volume 87 fL (80-94); Mean Platelet Volume 9.3 fL (7.4-10.4); Platelet Count 191 10^3/uL (150-450); Red Blood Count 4.44 10^6 /uL (4.18-5.48); Red Cell Distribution Width 16 % (10-15); White Blood Count 15.2 10^3/uL (3.5-10.8)
[2022-04-23 07:14] LABS: ABS Lymphocytes 0.5 10^3/ul (1.0-4.8); ABS Monocytes 0.9 10^3/ul (0-0.8); ABS Neutrophils 13.7 10^3/ul (1.5-7.7); Eosinophil % 0.1 %; Lymphocyte % 3.5 %; Nucleated Red Blood Cells % 0.1
[2022-04-23 07:30] LABS: Calcium 9.4 mg/dL (8.6-10.3); Potassium 4.9 mmol/L (3.5-5.0); eGFR CKD-EPI 86.7 (>60)
[2022-04-23] MEDS: Senna TAB 8.6 mg TAB PO SCH (09:55)
[2022-04-23] MEDS: Polyethylene Glycol 3350 17 GM PACKET PO SCH (09:57)
[2022-04-23] MEDS: Morphine ER 15 mg TAB ** extended release PO SCH (11:43)
[2022-04-23 15:34] VITALS: BP 116/63
== END 2022-04-23 16:03 | disposition swing bed (61) | DRG 180 ==
LOC: ED 12:13 → SUATTDRO 20:06 → EDHOLD 20:06 → MEDTELE 04-07 16:44 → MED 04-17 08:59
PROVIDERS: ADMIT Hospitalist; ATTEND Family Medicine

== ENCOUNTER 2022-04-23 16:03 | Inpatient (IN) ==
[2022-04-23] MEDS ORDERED: Albuterol HFA INHALER 8 gm MDI INH PRN (17:04)
[2022-04-23] MEDS ORDERED: Lidocaine 2% JELLY 6 ML Topical TOPICAL ONE (17:08)
[2022-04-23] MEDS ORDERED: Magnesium Hydroxide LIQ 30 ML UDC PO PRN (17:09)
[2022-04-23] MEDS ORDERED: Polyethylene Glycol 3350 17 GM PACKET PO PRN (17:16)
[2022-04-23] MEDS: Morphine ER 15 mg TAB ** extended release PO SCH ×3 (17:23→23:41)
[2022-04-23] MEDS: Senna TAB 8.6 mg TAB PO SCH (20:57)
[2022-04-23] MEDS: Polyethylene Glycol 3350 17 GM PACKET PO SCH (20:57)
[2022-04-24] MEDS: Senna TAB 8.6 mg TAB PO SCH ×2 (09:56→20:55)
[2022-04-24] MEDS: Polyethylene Glycol 3350 17 GM PACKET PO SCH ×2 (09:57→21:01)
[2022-04-24] MEDS: Morphine ER 15 mg TAB ** extended release PO SCH (12:08)
[2022-04-24] MEDS: Calcium Carb (TUMS) 500 mg CHEW TAB PO PRN (15:40)
[2022-04-25] MEDS: Morphine ER 15 mg TAB ** extended release PO SCH ×3 (00:09→23:22)
[2022-04-25] MEDS: Polyethylene Glycol 3350 17 GM PACKET PO SCH ×2 (09:28→20:50)
[2022-04-25] MEDS: Senna TAB 8.6 mg TAB PO SCH ×2 (09:30→20:50)
[2022-04-26] MEDS: Polyethylene Glycol 3350 17 GM PACKET PO SCH ×2 (08:59→21:46)
[2022-04-26] MEDS: Senna TAB 8.6 mg TAB PO SCH ×2 (08:59→21:49)
[2022-04-26] MEDS: Morphine ER 15 mg TAB ** extended release PO SCH (12:21)
[2022-04-27] MEDS: Morphine ER 15 mg TAB ** extended release PO SCH ×3 (00:08→23:36)
[2022-04-27] MEDS: Polyethylene Glycol 3350 17 GM PACKET PO SCH ×2 (08:47→21:47)
[2022-04-27] MEDS: Senna TAB 8.6 mg TAB PO SCH ×2 (08:49→21:44)
[2022-04-27 12:00] LABS: Urine Appearance Turbid; Urine Bilirubin Negative (Negative); Urine Blood 1+ (Negative); Urine Color Yellow; Urine Glucose Negative (Negative); Urine Ketones Negative (Negative); Urine Nitrite Negative (Negative); Urine Protein 3+(>=500 mg/dL) (Negative); Urine Specific Gravity 1.022 (1.002-1.030); Urine Urobilinogen Negative (Negative)
[2022-04-27 12:07] LABS: Urine Amorphous Crystals Present (Absent); Urine Bacteria Absent (Absent); Urine Red Blood Cell 3+(>10/hpf) (Absent); Urine White Blood Cell Trace(0-5/hpf) (Absent)
[2022-04-28] MEDS: Polyethylene Glycol 3350 17 GM PACKET PO SCH ×2 (08:33→20:15)
[2022-04-28] MEDS: Senna TAB 8.6 mg TAB PO SCH ×2 (08:36→20:15)
[2022-04-28] MEDS: Morphine ER 15 mg TAB ** extended release PO SCH (12:21)
[2022-04-28] MEDS: Ondansetron ODT 4 mg TAB 4 MG TAB SL PRN (12:21)
[2022-04-29] MEDS: Senna TAB 8.6 mg TAB PO SCH ×2 (09:29→20:07)
[2022-04-29] MEDS: Polyethylene Glycol 3350 17 GM PACKET PO SCH ×2 (09:29→20:44)
[2022-04-29] MEDS: Ondansetron ODT 4 mg TAB 4 MG TAB SL PRN ×2 (09:39→20:17)
[2022-04-29] MEDS: Morphine ER 15 mg TAB ** extended release PO SCH ×3 (14:54→23:36)
[2022-04-29] MEDS: Calcium Carb (TUMS) 500 mg CHEW TAB PO PRN (20:18)
[2022-04-30] MEDS: Polyethylene Glycol 3350 17 GM PACKET PO SCH ×2 (10:14→20:47)
[2022-04-30] MEDS: Morphine ER 15 mg TAB ** extended release PO SCH ×2 (10:15→23:35)
[2022-04-30] MEDS: Senna TAB 8.6 mg TAB PO SCH ×2 (10:15→20:47)
[2022-04-30] MEDS: Ondansetron ODT 4 mg TAB 4 MG TAB SL PRN (10:15)
[2022-05-01] MEDS: Senna TAB 8.6 mg TAB PO SCH ×2 (08:44→21:03)
[2022-05-01] MEDS: Polyethylene Glycol 3350 17 GM PACKET PO SCH ×2 (09:48→21:02)
[2022-05-01] MEDS: Ondansetron ODT 4 mg TAB 4 MG TAB SL PRN (10:46)
[2022-05-01] MEDS: Morphine ER 15 mg TAB ** extended release PO SCH (10:46)
[2022-05-01] MEDS: Scopolamine 1 mg/72hr PATCH TRANSDERM SCH (14:48)
[2022-05-01] MEDS ORDERED: Ondansetron ODT 4 mg TAB 4 MG TAB SL PRN (14:58)
[2022-05-01 19:29] VITALS: BP 101/63
[2022-05-02] MEDS: Morphine ER 15 mg TAB ** extended release PO SCH ×2 (00:02→11:29)
[2022-05-02] MEDS: Polyethylene Glycol 3350 17 GM PACKET PO SCH ×2 (08:45→20:51)
[2022-05-02] MEDS: Senna TAB 8.6 mg TAB PO SCH ×2 (08:46→20:48)
[2022-05-02] MEDS: Nystatin SUSPENSION 100,000 UNITS/ML UDC PO SCH ×2 (17:33→20:48)
[2022-05-03] MEDS: Morphine ER 15 mg TAB ** extended release PO SCH ×2 (00:11→12:03)
[2022-05-03] MEDS ORDERED: Morphine ORAL.SOLN 10 mg 2 mg/ml UDC 5 ml (10 mg) PO PRN ×2 (09:05)
[2022-05-03] MEDS: Polyethylene Glycol 3350 17 GM PACKET PO SCH ×2 (10:02→21:58)
[2022-05-03] MEDS: Nystatin SUSPENSION 100,000 UNITS/ML UDC PO SCH ×4 (10:35→21:58)
[2022-05-03] MEDS: Senna TAB 8.6 mg TAB PO SCH ×2 (10:37→21:56)
[2022-05-04] MEDS: Morphine ER 15 mg TAB ** extended release PO SCH ×2 (00:48→00:51)
[2022-05-04] MEDS ORDERED: Morphine ORAL CONCENTRATE 5 MG/0.25 ML ORAL.SYRIN SL PRN ×2 (00:58→07:49)
[2022-05-04] MEDS ORDERED: fentaNYL PATCH 12 MCG/HR 1 PATCH TRANSDERM SCH (08:00)
[2022-05-04] MEDS ORDERED: Fluoxetine LIQ 20 MG/5 ML UDC PO SCH (09:00)
[2022-05-04] MEDS ORDERED: Dexamethasone Oral Solution 1 MG/ML 10 ML UDC (10 MG) PO SCH (09:00)
[2022-05-04 09:03] LABS: Rapid COVID-19 Molecular Undetected (Undetected)
[2022-05-04] MEDS: Polyethylene Glycol 3350 17 GM PACKET PO SCH (09:43)
[2022-05-04] MEDS: Senna TAB 8.6 mg TAB PO SCH (09:44)
[2022-05-04] MEDS: Nystatin SUSPENSION 100,000 UNITS/ML UDC PO SCH (09:54)
[2022-05-04] MEDS: Morphine ORAL CONCENTRATE 5 MG/0.25 ML ORAL.SYRIN SL PRN ×2 (11:07→13:25)
[2022-05-04] MEDS: Scopolamine 1 mg/72hr PATCH TRANSDERM SCH (13:17)
[2022-05-04] MEDS ORDERED: fentaNYL Patch Check Q Shift NOTE FOLLOW UP SCH (19:00)
== END 2022-05-04 14:50 | DRG 180 ==
LOC: MED 16:03 → SUATTDRO 16:03 → MED 05-01 20:47
PROVIDERS: ADMIT Family Medicine; ATTEND Hospitalist